=== PATIENT | female | born 1995 | race Caucasian/White ===

== ENCOUNTER 2020-06-07 15:21 | Emergency (ER) | payer BC, OTHER ==
[2020-06-07 15:41] VITALS: BMI 33.3
[2020-06-07] MEDS ORDERED: SODIUM CHLORIDE 0.9% 500 ML INFUS.BAG IV ONE (16:19)
--- NOTE | 2020-06-07 16:26 | PDOC ---
History of Present Illness - General Chief Complaint: Diarrhea Stated Complaint: BOWEL MOVEMENT/27WKS PRGT Time Seen by Provider: 06/07/20 15:57 History Source: Patient Exam Limitations: No Limitations - History of Present Illness Initial Comments: 06/07/20 16:22 24-year-old female denies past medical history , 2 terminations of pregnancies, currently 27 weeks gestation presents complaining of general abdominal cramping with nausea, approximately 10 episodes of loose and watery diarrhea, one episode of vomiting. Patient has been tolerating p.o. Reports normal trans vaginal ultrasound on May 11, 2020. Patient denies vaginal bleeding, low back pain, cough, fever, chills, shortness of breath, chest pain, headache, body aches, urinary complaints, known sick contacts or recent travel. Patient has not taken no medications or has had new foods. Patient is toleratin g p.o. Patient presents to ED concerned because she noted "a few streaks of black string appearance" in her stool today. Patient is scheduled to follow-up with OB in approximately 2.5 weeks. ROS: as above PE: GENERAL: well-appearing, NAD HEAD: NCAT EYES: Pupils equal, round and reactive to light, sclera anicteric, conjunctiva clear ENT: pharynx: no erythema, no exudate, uvula midline NECK: supple CHEST: nontender RESP: clear, no w/r/r CARDIO: rrr, no m/g/r ABD: +BS, soft, nontender, gravid BACK: no midline spinal ttp, no CVAT EXTREMITIES: Normal range of motion, no edema NEUROLOGICAL: Normal speech, normal gait SKIN: Warm, Dry Is this a multiple visit Asthma Patient?: No Past History - Medical History Allergies/Adverse Reactions: Allergies Allergy/AdvReac Type Severity Reaction Status Date / Time No Known Allergies Allergy Verified 06/07/20 15:36 Home Medications: Ambulatory Orders Nitrofurantoin Monohyd/M-Cryst [Macrobid -] 100 mg PO BID #14 capsule 06/07/20 [id number]/Iron/Folic Acid/Dha [Prena1 Leslie Softgel] 1 tab PO DAILY 06/07/20 COPD: No - Reproductive History Is Patient Now?: No - Psycho-Social/Smoking History Smoking History: Never smoked - Substance Abuse Hx (Audit-C & DAST Scrn) How often the patient has a drink containing alcohol: Never Score: In Men: 4 or > Positive; In Women: 3 or > Positive: 0 Screen Result (Pos requires Nsg. Audit-10AR): Negative In the last yr the pt used illegal drug/Rx for NonMed reason: No Score: Yes response is considered Positive: 0 Screen Result (Positive result requires Nsg. DAST-10): Negative *Physical Exam - Vital Signs Last Vital Signs Temp Pulse Resp BP Pulse Ox 98.5 F 92 H 18 128/63 99 06/07/20 15:37 06/07/20 15:37 06/07/20 15:37 06/07/20 15:37 06/07/20 15:37 ED Treatment Course - LABORATORY CBC & Chemistry Diagram: 06/07/20 16:35 06/07/20 16:35 Medical Decision Making - Medical Decision Making 06/07/20 16:25 24-year-old female denies past medical history , 2 terminations of pregnancies, currently 27 weeks gestation presents complaining of general abdominal cramping with nausea, approximately 10 episodes of loose and watery diarrhea, one episode of vomiting. Patient has been tolerating p.o. Reports normal trans vaginal ultrasound on May 11, 2020. Patient denies vaginal bleeding, low back pain, cough, fever, chills, shortness of breath, chest pain, headache, body aches, urinary complaints, known sick contacts or recent travel. Patient has not taken no medications or has had new foods. Patient is tolerating p.o. Patient presents to ED concerned because she noted "a few streaks of black string appearance" in her stool today. Patient is scheduled to follow-up with OB in approximately 2.5 weeks. CBC, CMP, UA, urine culture IV fluids Reassess 06/07/20 18:00 Reviewed lab and UA Discussed results with patient We will treat for UTI with Macrobid 100 mg twice a day for 7 days Given patient is 27 weeks gestational age well sent to labor and delivery for monitoring Discharge - Discharge Information Problems reviewed: Yes Clinical Impression/Diagnosis: Abdominal cramping Condition: Stable Disposition: HOME - Admission No - Follow up/Referral - Patient Discharge Instructions Additional Instructions: Take Macrobid 100 mg 1 tablet twice a day for 7 days Follow-up with your OB doctor as scheduled Return to ED if vaginal bleeding, worsening abdominal pain, fever, chills or any concerning symptom - Post Discharge Activity
[2020-06-07 16:46] LABS: BASO % 0.3 % (0-2.0); EOS % 0.7 % (0-4.5); HEMOGLOBIN 11.5 GM/dL (10.7-15.3); LYMPH % 16.8 % (8-40); MCH 28.9 pg (25.7-33.7); MCHC 33.9 g/dl (32.0-36.0); MEAN CELL VOLUME 85.2 fl (80-96); MEAN PLT VOLUME 7.5 fl (7.5-11.1); MONO % 6.6 % (3.8-10.2); NEUT % 75.6 % (42.8-82.8); PLATELET COUNT 250 K/MM3 (134-434); RBC 3.99 M/mm3 (3.60-5.2); RDW 13.3 % (11.6-15.6); WHITE BLOOD COUNT 10.6 K/mm3 (4.0-10.0)
[2020-06-07 16:50] LABS: EPI CELLS >36 /uL (0-25.1); HYALINE CASTS 3 /uL (0-3.1); PH,URINE 6.5 (5.0-8.0); URINE APPEARANCE CLOUDY; URINE BACTERIA 3433 /uL (0-1359); URINE BILIRUBIN NEGATIVE (NEGATIVE); URINE COLOR YELLOW; URINE GLUCOSE (UA) NEGATIVE (NEGATIVE); URINE KETONE NEGATIVE (NEGATIVE); URINE LEUK ESTERASE 3+ (NEGATIVE); URINE NITRITE NEGATIVE (NEGATIVE); URINE PROTEIN NEGATIVE (NEGATIVE); URINE RBC 12 /uL (0-23.9); URINE UROBILINOGEN 0.2 mg/dL (0.2-1.0); URINE WBC 554 /uL (0-25.8)
[2020-06-07 17:39] LABS: ALBUMIN 2.9 g/dl (3.4-5.0); BILIRUBIN,TOTAL 0.2 mg/dL (0.2-1); BLOOD UREA NITROGEN 8.7 mg/dL (7-18); CALCIUM 8.9 mg/dL (8.5-10.1); CREATININE 0.8 mg/dL (0.55-1.3); TOT PROT 6.6 g/dl (6.4-8.2)
[2020-06-07 18:46] VITALS: BP 119/62; PULSE 82; TEMP 98.4
--- NOTE | 2020-06-07 18:58 | PD.OB.PROG ---
Past Medical History - Primary Care Physician PCP:: Jacob Jonas Documenting Provider Type: Laborist - Admission Chief Complaint: diarrhea History of Present Illness: pt. seen and evaluated in ed for c/o earlier had diarrhea, stomach ache and one episode vomiting. thinks it was from eating a yogurt at in-laws that may have been . denies anorexia, fever or chills. tolerating po. no pain now. denies any leaking or bleeding. +FM. received iv hydration and sent to L&D for nst after nurse d/w covering , Dr. Jonas. asked to review strip prior to d/c home. NST approp for gest age no uc's abd: soft, nt, gravid pt. states feeling better states no signif PMH and uncomplicated preg so far. also was given rx macrobid in ed for possible uti on u/a result (no uti symptoms) and was advised to f/u w her OB History Source: Patient - Nursing Documentation Maternal Triage Index: Maternal Triage Index ( Priority 2, Urgent MFTI) Maternal Triage Index ( Priority 2, Urgent MFTI) Nursing Documentation Reviewed: Yes - Past Medical History ...: 3 ...Para: 0 ...Term: 0 ...: 0 ...Spon : 0 ...Induced : 2 ...Living Children: 0 ...LMP: 12/02/19 ... Weeks Gestation by Dates: 26.6 ...EDC by Dates: 09/07/20 ...EDC by Sono: 09/09/20 - Smoking History Smoking history: Never smoked Physical Exam - Obstetrical Vital Signs: Vital Signs Temperature 98.4 F 06/07/20 18:34 Pulse Rate 82 06/07/20 18:34 Respiratory Rate 20 06/07/20 18:34 Blood Pressure 119/62 06/07/20 18:34 O2 Sat by Pulse Oximetry (%) 98 06/07/20 17:58 - Labs Lab Results: CBC, BMP 06/07/20 16:35 06/07/20 16:35
== END 2020-06-07 19:20 | disposition home or self-care (01) ==
LOC: JER 15:21
DX: O26.893 Other specified pregnancy related conditions, third trimester (principal); R10.9 Unspecified abdominal pain; Z3A.27 27 weeks gestation of pregnancy
CPT/HCPCS: 36415; 80053; 81003; 85025; 87086; 99284-25

== ENCOUNTER 2020-09-05 08:45 | Inpatient (IN) | payer BC, OTHER ==
[2020-09-05 09:56] LABS: BASO % 0.2 % (0-2.0); EOS % 0.7 % (0-4.5); HEMATOCRIT 33.5 % (32.4-45.2); HEMOGLOBIN 11.1 GM/dL (10.7-15.3); LYMPH % 15.8 % (8-40); MCH 27.5 pg (25.7-33.7); MCHC 33.1 g/dl (32.0-36.0); MEAN CELL VOLUME 82.9 fl (80-96); MEAN PLT VOLUME 8.5 fl (7.5-11.1); MONO % 5.9 % (3.8-10.2); NEUT % 77.4 % (42.8-82.8); PLATELET COUNT 244 K/MM3 (134-434); RBC 4.05 M/mm3 (3.60-5.2); RDW 14.8 % (11.6-15.6); WHITE BLOOD COUNT 12.5 K/mm3 (4.0-10.0)
[2020-09-05] MEDS ORDERED: ELECTROLYTE-148 SOLN 1,000 ML IV SCH (10:00)
[2020-09-05 10:02] LABS: INR 0.94 (0.83-1.09); PROTHROMBIN TIME (PATIENT) 11.4 SEC (9.7-13.0)
[2020-09-05 10:05] LABS: ACTIVATED PTT 24.5 SECONDS (25.2-36.5)
[2020-09-05 10:32] VITALS: BMI 37.3
[2020-09-05 10:32] LABS: POTASSIUM 3.8 mmol/L (3.5-5.1)
[2020-09-05 10:33] LABS: CALCIUM 9.5 mg/dL (8.5-10.1)
[2020-09-05 10:34] LABS: BLOOD UREA NITROGEN 8.8 mg/dL (7-18)
[2020-09-05 10:37] LABS: CREATININE 0.7 mg/dL (0.55-1.3)
[2020-09-05] MEDS ORDERED: PROMETHAZINE HCL 25 MG/1 ML VIAL IVPB ONE (13:53)
[2020-09-05] MEDS ORDERED: BUTORPHANOL TARTRATE 1 MG/ML VIAL IVPB ONE (13:53)
[2020-09-05] MEDS ORDERED: OXYTOCIN 30 UNITS in 0.9% NS 30 UNIT/500 ML INFUS.BAG IVPB ONE (14:05)
[2020-09-05] MEDS: OXYTOCIN 30 UNITS in 0.9% NS 30 UNIT/500 ML INFUS.BAG IVPB SCH (14:10)
[2020-09-05] MEDS ORDERED: PCA PUMP NR ONE (22:00)
[2020-09-05] MEDS ORDERED: FENTANYL/BUPIVACAINE/NS/PF - PCEA - 50 ML DISP.SYRIN EP ONE (22:00)
[2020-09-05] MEDS: FENTANYL/BUPIVACAINE/NS/PF - PCEA - 50 ML DISP.SYRIN EP SCH (22:42)
[2020-09-05] MEDS ORDERED: NALOXONE HCL 0.4 MG/ML VIAL IVPUSH PRN (22:48)
[2020-09-05] MEDS: ELECTROLYTE-148 SOLN 1,000 ML IV SCH (23:00)
[2020-09-06] MEDS ORDERED: FENTANYL/BUPIVACAINE/NS/PF - PCEA - 50 ML DISP.SYRIN EP ONE ×4 (01:01→09:13)
[2020-09-06] MEDS ORDERED: BUPIVACAINE HCL/PF 0.25% (2.5MG/ML) 10 ML VIAL ONE ×2 (01:44→08:34)
[2020-09-06] MEDS ORDERED: OXYTOCIN 20 UNITS in 0.9% NS 20 UNIT/1,000 ML INFUS.BAG IV ONE (09:48)
[2020-09-06] MEDS ORDERED: LIDOCAINE HCL 1% PRESERVATIVE FREE - 30ML VIAL ONE (09:48)
[2020-09-06] MEDS ORDERED: LABETALOL HCL 5 MG/1 ML (100MG/20 ML VIAL) ONE (10:31)
[2020-09-06] MEDS ORDERED: CEFAZOLIN 2 GM/D5W 2 GM/50 ML ML IVPB ONE (12:55)
[2020-09-06] MEDS ORDERED: morphine SULFATE/PF 0.5 MG/ML (2cc Syringe - QUVA) ONE (12:56)
[2020-09-06] MEDS ORDERED: PHENYLEPHRINE HCL 10 MG/1 ML SINGLE DOSE VIAL ONE (13:08)
[2020-09-06] MEDS ORDERED: OXYTOCIN 10 UNITS/ML VIAL ONE (13:19)
[2020-09-06] MEDS ORDERED: KETOROLAC TROMETHAMINE 30 MG/1 ML VIAL ONE (13:19)
[2020-09-06 13:52] LABS: CORD BASE EXCESS -9.5 mmol/L (0-2); CORD HCO3 17.9 mmHg (20-29); CORD PCO2 44.1 mmHg (30-78); CORD pH 7.227 (7.14-7.44)
[2020-09-06 13:56] LABS: CORD HCO3 18.8 mmHg (20-29); CORD PCO2 54.2 mmHg (30-78); CORD pH 7.158 (7.14-7.44)
[2020-09-06] MEDS ORDERED: WITCH HAZEL 50% (TUCKS) 40 PAD/JAR PAD TP PRN (14:32)
[2020-09-06] MEDS ORDERED: BENZOCAINE 20% 57 GM BOTTLE TP PRN (14:32)
[2020-09-06] MEDS ORDERED: diphenhydrAMINE HCL 25 MG CAPSULE (FP) PO PRN (14:32)
[2020-09-06] MEDS ORDERED: METHYLERGONOVINE MALEATE 0.2 MG/1 ML AMP IM PRN (14:32)
[2020-09-06] MEDS ORDERED: BENZOCAINE 28 GM HEMORRHOIDAL OINTMENT RC PRN (14:32)
[2020-09-06] MEDS ORDERED: oxyCODONE HCL 5 MG TABLET PO PRN ×2 (14:32)
[2020-09-06] MEDS ORDERED: DEXTROSE 5%-LACTATED RINGERS 1,000 ML IV SCH (14:45)
[2020-09-06] MEDS ORDERED: OXYTOCIN 20 UNITS in 0.9% NS 20 UNIT/1,000 ML INFUS.BAG IV SCH (14:45)
[2020-09-06] MEDS ORDERED: ONDANSETRON 4 MG/2 ML VIAL IVPUSH PRN (15:14)
[2020-09-06] MEDS: ELECTROLYTE-148 SOLN 1,000 ML IV SCH (16:14)
[2020-09-06] MEDS: OXYTOCIN 30 UNITS in 0.9% NS 30 UNIT/500 ML INFUS.BAG IVPB SCH (16:14)
[2020-09-06] MEDS: IBUPROFEN 800 MG/8 ML IJ IVPB PRN (16:30)
[2020-09-06] MEDS ORDERED: IBUPROFEN 800 MG/8 ML IJ IVPB ONE (16:32)
[2020-09-06] MEDS: CEFAZOLIN 1 GM/D5W 1 GM/50 ML BAG IVPB SCH (18:36)
[2020-09-07] MEDS: CEFAZOLIN 1 GM/D5W 1 GM/50 ML BAG IVPB SCH (02:04)
[2020-09-07] MEDS: IBUPROFEN 800 MG/8 ML IJ IVPB PRN (04:56)
[2020-09-07 08:09] LABS: BASO % 0.1 % (0-2.0); EOS % 0.3 % (0-4.5); HEMATOCRIT 27.1 % (32.4-45.2); HEMOGLOBIN 8.9 GM/dL (10.7-15.3); LYMPH % 12.4 % (8-40); MCHC 32.8 g/dl (32.0-36.0); MEAN CELL VOLUME 85.5 fl (80-96); MEAN PLT VOLUME 8.6 fl (7.5-11.1); MONO % 8.3 % (3.8-10.2); NEUT % 78.9 % (42.8-82.8); PLATELET COUNT 186 K/MM3 (134-434); RBC 3.17 M/mm3 (3.60-5.2); RDW 14.9 % (11.6-15.6)
[2020-09-07] MEDS: ENOXAPARIN NA (PORCINE) 40 MG/0.4 ML DISP.SYRIN SQ SCH (09:45)
[2020-09-07] MEDS: IBUPROFEN 600 MG TABLET (FP) PO PRN ×2 (12:12→20:38)
[2020-09-07] MEDS: ACETAMINOPHEN 325 MG TABLET (FP) PO PRN ×2 (12:13→20:38)
[2020-09-07] MEDS: SIMETHICONE 80 MG TAB.CHEW (FP) PO PRN ×2 (12:13→20:38)
[2020-09-07] MEDS ORDERED: BISACODYL 10 MG SUPP.RECT PR PRN (14:32)
[2020-09-08] MEDS: ACETAMINOPHEN 325 MG TABLET (FP) PO PRN ×3 (05:03→19:48)
[2020-09-08] MEDS: IBUPROFEN 600 MG TABLET (FP) PO PRN ×3 (05:03→19:48)
[2020-09-08] MEDS: SIMETHICONE 80 MG TAB.CHEW (FP) PO PRN ×3 (05:04→19:51)
[2020-09-08] MEDS: ENOXAPARIN NA (PORCINE) 40 MG/0.4 ML DISP.SYRIN SQ SCH (09:53)
[2020-09-08] MEDS ORDERED: SENNOSIDES/DOCUSATE COMBO (SENNA PLUS) TABLET (UD) PO PRN (22:00)
[2020-09-09] MEDS: ACETAMINOPHEN 325 MG TABLET (FP) PO PRN (04:02)
[2020-09-09] MEDS: SIMETHICONE 80 MG TAB.CHEW (FP) PO PRN (04:03)
[2020-09-09] MEDS: IBUPROFEN 600 MG TABLET (FP) PO PRN (04:03)
[2020-09-09] MEDS: FENTANYL/BUPIVACAINE/NS/PF - PCEA - 50 ML DISP.SYRIN EP SCH (07:22)
[2020-09-09 09:34] LABS: BASO % 0.2 % (0-2.0); EOS % 0.9 % (0-4.5); HEMATOCRIT 25.8 % (32.4-45.2); HEMOGLOBIN 8.6 GM/dL (10.7-15.3); LYMPH % 18.3 % (8-40); MCH 28.3 pg (25.7-33.7); MCHC 33.2 g/dl (32.0-36.0); MEAN CELL VOLUME 85.3 fl (80-96); MEAN PLT VOLUME 8.7 fl (7.5-11.1); MONO % 6.7 % (3.8-10.2); NEUT % 73.9 % (42.8-82.8); PLATELET COUNT 226 K/MM3 (134-434); RBC 3.03 M/mm3 (3.60-5.2); RDW 15.1 % (11.6-15.6); WHITE BLOOD COUNT 11.5 K/mm3 (4.0-10.0)
[2020-09-09] MEDS: ENOXAPARIN NA (PORCINE) 40 MG/0.4 ML DISP.SYRIN SQ SCH (10:27)
[2020-09-09 10:44] VITALS: BP 134/81; PULSE 70; TEMP 98.2
== END 2020-09-09 11:50 | disposition home or self-care (01) | DRG 788 ==
LOC: JLDR 08:45 → J3W 09-06 16:50
PROVIDERS: ADMIT Obstetrics & Gynecology; ATTEND Obstetrics & Gynecology
PROC: 10D00Z1 Extraction of Products of Conception, Low, Open Approach (ICD-10-PCS; principal; 2020-09-06)
DX: O62.1 Secondary uterine inertia (principal); O13.3 Gestational [pregnancy-induced] hypertension without significant proteinuria, third trimester; O99.013 Anemia complicating pregnancy, third trimester; D64.9 Anemia, unspecified; O99.213 Obesity complicating pregnancy, third trimester; Z3A.39 39 weeks gestation of pregnancy; Z37.0 Single live birth
CPT/HCPCS: 36415; 36600; 80048; 82803; 85025; 85610; 85730; 86780; 86850; 86900; 86901; 88307-TC; C9803; U0003